=== PATIENT | female | born 1975 | race Hispanic/Latino ===

== ENCOUNTER 2016-09-26 09:27 | Emergency (ER) | payer OTHER ==
[~2016-09-26] VITALS: Ht 165.1 cm; Wt 68.0 kg
[2016-09-26 09:30] VITALS: BP 143/88
--- NOTE | 2016-09-26 09:39 | ED INFLUENZA/URI COMPLAINT ---
History of Present Illness General Chief Complaint: Upper Respiratory Sx/Fever Stated Complaint: COUGH AND CONGESTION X 2 MONTHS Source: patient, old records Exam Limitations: no limitations Vital Signs & Intake/Output Vital Signs & Intake/Output ED Intake and Output 09/27 0000 09/26 1200 Intake Total Output Total Balance Patient 150 lb Weight Allergies Coded Allergies: No Known Allergies (09/26/16) Reconcile Medications Albuterol Sulfate (Proair Hfa) 90 MCG HFA.AER.AD 2 PUF INH Q4-6 PRN PRN WHEEZING Methylprednisolone. (Medrol) 4 MG TAB.DS.PK 1 DP PO AD BRONCHITIS 6 on day 1 then reduce by one tablet daily until gone Robitussin AC (Guaifenesin-Codeine Syrup) 200 MG-20 MG/10 ML LIQUID 10 ML PO Q6HR PRN COUGH Triage Note: TRIAGE: PT TO ER C/C COLD X 2 MONTHS. HAS BEEN SEEN BY URGENT CARE AND PMD. HAS BEEN ON "2 ROUNDS OF ANTIBIOTICS BUT ITS JUST PROGRESSING AND NOT GETTING BETTER. I'M GETTING REALLY TIRED." REPORTS S/S MOSTLY NON PRODUCTIVE COUGH, OCCASIONALLY HAS CLEAR PHLEGM, HEADACHE, STUFFY NOSE, WATERY EYES, "SOMETIMES I HAVE SHORTNESS OF BREATH". DENIES SOB AT PRESENT. ALSO REPORTS GENERALIZED FATIGUE. Triage Nurses Notes Reviewed? yes Onset: Gradual Duration: x 2 months Timing: recent history Severity: mild, moderate Severity Numbers: 5 Prior Episodes/Possible Cause: occassional episodes No Modifying Factors: none Associated Symptoms: cough, nasal congestion, nasal drainage LMP (ages 10-50): 09/06/16 : No Patient currently breastfeeds: No HPI: 41 year old female with no medical history presents to the ER complaining of a 2 month history of a nonproductive cough, head congestion, intermittent dyspnea. The patient has been on 2 rounds of antibiotics: Augmentin and Z-Robert finishing her last course 10 days ago. She states she was feeling better however the symptoms came back. She reports intermittent fevers at home. She does not smoke she denies any shortness of breath at this time. She is given a nebulizer treatment and her doctor's office with improvement. No history of asthma no sick contacts or recent travel. No pain with inspiration no chest pain sputum production hemoptysis no abdominal pain nausea vomiting or diarrhea. Patient reports cough is worse at night (ONEAL CHAPPELL) Past History Travel History Traveled to [place] past 21 day No Medical History Any Pertinent Medical History? none Neurological: NONE EENT: NONE Cardiovascular: NONE Respiratory: NONE Gastrointestinal: NONE Hepatic: NONE Renal: NONE Musculoskeletal: NONE Psychiatric: NONE Endocrine: NONE Blood Disorders: NONE Cancer(s): NONE APPLICATION SUPPORT MANAGER/Reproductive: NONE Surgical History Surgical History: none Psychosocial History What is your primary language Armenian Tobacco Use: Never used ETOH Use: occasional use Illicit Drug Use: denies illicit drug use Family History Hx Contributory? No (ONEAL CHAPPELL) Review of Systems Review of Systems Constitutional: Reports: see HPI. All Other Systems: Reviewed and Negative Comments Review of systems: See HPI, All other systems negative. Constitutional, no chills fever, no malaise HEENT: No visual changes no sore throat no congestion, no ear pain Cardiovascular: No chest pain , no palpitation , no orthopnea no ankle swelling Skin,no rashes, no change in skin Respiratory: dyspnea cough no sputum no hemoptysis GI: No nausea no vomiting, no diarrhea, no bloating/constipation : No dysuria No hematuria, no frequenc Muscle skeletal: No joint pain, no back pain, no neck pain, Neurologic: No numbness no headache Psych: No stress . Heme/endocrine: No bruising no bleeding Immunology: No lymphadenopathy (ONEAL CHAPPELL) Physical Exam Physical Exam General Appearance: well developed/nourished, no apparent distress, alert, awake Ears, Nose, Throat: normal ENT inspection, moist mucous membrane, hearing grossly normal, Tympanic normal, pharynx normal Comments: Well-developed well-nourished patient in no apparent distress. Head/Face: Atraumatic, no maxillary/frontal sinus tenderness, no facial swelling Eyes: PERRL, EOMI, no conjunctival injection. No nystagmus Ear:External auditory canal and Tympanic membranes clear, no erythema, no FB. Nose: atraumatic.Normal inspection: No bleeding Throat: Moist mucous membranes.Pharynx normal. No pharyngeal erythema/exudate seen. No stridor/drooling or assymetry. No swelling or edema. Neck: Supple, no lymphadenopathy, FROM Back: FROM, Nontender Cardiovascular: Regular rate and rhythms no murmurs rubs or gallops, Respiratory: Chest nontender.There were no bony deformities, no asymmetry. No respiratory distress. Patient speaking in full complete sentences. Breath sounds clear to auscultation bilaterally: NO W/R/R Extremities: full range of motion Neuro: Alert and oriented x3 Skin: Warm & dry;No appreciable rash on exposed skin Psych: Mood affect normal, normal memory normal judgment. Core Measures Severe Sepsis Present: No Septic Shock Present: No (ONEAL CHAPPELL) Progress Differential Diagnosis: influenza, otitis, pneumonia, pharyngitis, sinusitis, bronchitis Plan of Care: Orders Procedure Date/time Status XRY-CHEST XRAY, PA AND LATERAL 09/26 953 Active Chest x-ray ordered patient speaking in full complete sentences appears in no respiratory distress afebrile nontoxic appearing at this time Discussed with patient her chest x-ray findings need for supportive care close follow-up with her primary care physician this week to ensure sx are improving. prescription for Medrol Dosepak PROair inhaler and Robitussin with codeine provided, she feels comfortable this plan and answered all their questions I discussed the medications that they will receive with the patient. I gave them signs and symptoms that could indicate an adverse reaction. I have advised them to limit their activities until they can see how they respond to the medication. (ONEAL CHAPPELL) Diagnostic Imaging: Viewed by Me: Radiology Read. Discussed w/RAD: Radiology Read. Radiology Impression: PATIENT: AMANDA SIU PRESENT AGE: 41 PATIENT ACCOUNT NO: [id number] : 74 LOCATION: [facility] ORDERING PHYSICIAN: ONEAL HUNT SERVICE DATE: 09/26/16 EXAM TYPE: RAD - XRY-CHEST XRAY, PA AND LATERAL EXAMINATION: XR CHEST CLINICAL INFORMATION: Cough, dyspnea. Evaluate for pneumonia. Patient states chronic cough for 2 months. Fever and chills. COMPARISON: None TECHNIQUE: PA and lateral views of the chest were obtained. FINDINGS: The cardiomediastinal silhouette is within normal limits in size. Lungs bilaterally are symmetrically expanded. No focal consolidation, effusion or pneumothorax is seen. Subtle nodular density is seen in the lower right chest projected over the anterior right sixth rib, most likely a summation shadow or nipple shadow. Bony structures are unremarkable. IMPRESSION: 1. No focal pneumonia. 2. Subtle nodular density over the right lower chest is most consistent with a summation shadow or nipple shadow. Please correlate with patient's clinical risk factors and consider either short interval follow-up chest x-ray for reassessment versus CT scan of the chest for further evaluation. DICTATED BY: CHALINO GALLEGO MD DATE/TIME DICTATED:09/26/161017 APPRENTICE COOK:RODERICK DATE/TIME TRANSCRIBED:09/26/161017 CONFIDENTIAL, DO NOT COPY WITHOUT APPROPRIATE AUTHORIZATION. <Electronically signed in Other Vendor System> SIGNED BY: CHALINO GALLEGO MD 09/26/16 1024 Initial ED EKG: none (ONEAL CHAPPELL) Departure Departure Time of Disposition: 1014 Disposition: HOME OR SELF CARE Condition: Stable Clinical Impression Primary Impression: Bronchitis Additional Instructions: Follow-up with your primary care physician later this week. Medrol Dosepak pro- air inhaler as directed Robitussin with codeine for cough use caution as this will make you drowsy no driving or drinking alcohol while taking. Return to emergency room at anytime sooner with any concerns these prescriptions were sent to your pharmacy-[facility] Departure Forms: Customer Survey General Discharge Information Prescriptions: Current Visit Scripts Robitussin AC (Guaifenesin-Codeine Syrup) 10 ML PO Q6HR PRN COUGH #200 ML Methylprednisolone. (Medrol) 1 DP PO AD #1 DP 6 on day 1 then reduce by one tablet daily until gone Albuterol Sulfate (Proair Hfa) 2 PUF INH Q4-6 PRN PRN WHEEZING #1 INHAL (ONEAL CHAPPELL) PA/MUSHROOM CUTTER Co-Sign Statement Statement: ED Attending supervision documentation- [] I saw and evaluated the patient. I have also reviewed all the pertinent lab results and diagnostic results. I agree with the findings and the plan of care as documented in the PA's/MUSHROOM CUTTER's documentation. [X] I have reviewed the ED Record and agree with the PA's/MUSHROOM CUTTER's documentation. [] Additions or exceptions (if any) to the PAs/MUSHROOM CUTTER's note and plan are summarized below: [] (JOSE ROBERTO HALL,TRA)
[2016-09-26] MEDS ORDERED: PROAIR HFA8.5 GM INH (10:16)
[2016-09-26] MEDS ORDERED: MEDROL4 M2 PO (10:16)
[2016-09-26] MEDS ORDERED: GUAIFENESIN-COD10 ML PO (10:16)
--- NOTE | 2016-09-26 10:24 | RADIOLOGY REPORT ---
EXAMINATION: XR CHEST CLINICAL INFORMATION: Cough, dyspnea. Evaluate for pneumonia. Patient states chronic cough for 2 months. Fever and chills. COMPARISON: None TECHNIQUE: PA and lateral views of the chest were obtained. FINDINGS: The cardiomediastinal silhouette is within normal limits in size. Lungs bilaterally are symmetrically expanded. No focal consolidation, effusion or pneumothorax is seen. Subtle nodular density is seen in the lower right chest projected over the anterior right sixth rib, most likely a summation shadow or nipple shadow. Bony structures are unremarkable. IMPRESSION: 1. No focal pneumonia. 2. Subtle nodular density over the right lower chest is most consistent with a summation shadow or nipple shadow. Please correlate with patient's clinical risk factors and consider either short interval follow-up chest x-ray for reassessment versus CT scan of the chest for further evaluation.
== END 2016-09-26 10:25 ==
LOC: ERH 09:27
DX: J40 Bronchitis, not specified as acute or chronic (principal)